=== PATIENT | female | born 1955 | race Hispanic/Latino ===

== ENCOUNTER 2017-03-21 15:15 | Inpatient (IN) | payer OTHER ==
[2017-03-21 15:28] VITALS: BMI 16.1
--- NOTE | 2017-03-21 15:44 | ED PDOC ---
Arrival/HPI - General Chief Complaint: Abdominal Pain Time Seen by Provider: 03/21/17 15:18 Historian: Patient - History of Present Illness Narrative History of Present Illness (Text): 03/21/17 15:40 61 y /o female, last tetanus doesn't remember, pmh including DVT?/ hyperlipidemia (non-compliance with medication)/leukemia? and possible lung cancer as per patient which never confirmed with biopsy, send in by PMD Dr. Potter for evaluation of weight loss and lt. lower rib cage pain. Pt. stated that she was a chronic smoker for years, noted to have lung lesion about 2 years ago which she had pet scan and show metasis as per patient but refused biopsy for confirmation, never had medical or specialists follow up as she is taking care of her mother. Pt. has multiple skin lesions lump on the chest region which pmd and delivery person is follow up. pt. is here today because she has lt. sided rib pain with painful upon inspiration which send in by her own pmd for further evaluation. Pt. stated that she does have weight loss recently but doesn't remember exactly how many pounds/kg but does noted appearance for skinnier appearance and BMI 16.1 noted in the ER. Pt. stated that she isn't on any medications. Pt. has no extremity pain, no night sweat, no rash, no numbness or tingling, no other medical or psychological complaints. Past Medical History - Provider Review Nursing Documentation Reviewed: Yes - Infectious Disease Hx of Infectious Diseases: None - Reproductive Menopause: Yes - Pulmonary Hx Lung Cancer: Yes (2 years ago no treatment) - Psychiatric Hx Substance Use: No Family/Social History - Physician Review Nursing Documentation Reviewed: Yes Family/Social History: Unknown Family HX Smoking Status: Current Some Days Smoker Hx Alcohol Use: Yes Frequency of alcohol use: Socially Hx Substance Use: No Allergies/Home Meds Allergies/Adverse Reactions: Allergies No Known Allergies Allergy (Verified 03/21/17 15:28) Home Medications: Home Meds Medication Instructions Recorded Confirmed Cephalexin [cephalexin] 500 mg PO Q12 03/21/17 03/21/17 Cyclobenzaprine [Cyclobenzaprine 10 mg PO DAILY 03/21/17 03/21/17 HCl] Mupirocin 2% Ointment [Bactroban 22 gm TID 03/21/17 03/21/17 Ointment] Review of Systems - Review of Systems Constitutional: Weight Change. absent: Fatigue, Fevers Eyes: absent: Vision Changes ENT: absent: Hearing Changes Respiratory: absent: SOB Cardiovascular: Chest Pain. absent: WALL, Orthopnea, Syncope Gastrointestinal: absent: Abdominal Pain, Diarrhea, Nausea, Vomiting Genitourinary Female: absent: Dysuria, Frequency Musculoskeletal: absent: Arthralgias, Back Pain Skin: Rash, Skin Lesions. absent: Pruritis, Laceration, Abscess, Ulcer, Cellulitis Neurological: absent: Headache, Dizziness Psychiatric: absent: Anxiety, Depression Physical Exam Vital Signs Reviewed: Yes Vital Signs Temp Pulse Resp BP Pulse Ox 03/21/17 18:08 98 F 110 H 18 101/54 L 100 03/21/17 15:28 97.6 F 112 H 16 133/63 95 Temperature: Afebrile Blood Pressure: Normal Pulse: Tachycardic Respiratory Rate: Normal Appearance: Positive for: Well-Appearing, Non-Toxic, Ill-Appearing, Unkept, Uncomfortable Pain Distress: Mild Mental Status: Positive for: Alert and Oriented X 3 - Systems Exam Head: Present: Atraumatic, Normocephalic Pupils: Present: PERRL Extroacular Muscles: Present: EOMI Conjunctiva: Present: Normal Mouth: Present: Moist Mucous Membranes Neck: Present: Normal Range of Motion, Trachea Midline. No: Lymphadenopathy Respiratory/Chest: Present: Clear to Auscultation, Good Air Exchange, Decreased Breath Sounds, Other (multiple skin lumps noted on the lt. posterior scapular and rt. posterior rib cage region with approx. 4cm diameter with no fluctuant abscess with lt. posterior shoulder scapular with superficial abrasion and active bleeding when removing dressing. ). No: Respiratory Distress, Accessory Muscle Use, Retracting, Rhonchi Cardiovascular: Present: Regular Rate and Rhythm, Normal S1, S2. No: Murmurs Abdomen: Present: Normal Bowel Sounds. No: Tenderness, Distention, Peritoneal Signs Back: Present: Normal Inspection Upper Extremity: Present: Normal Inspection. No: Cyanosis, Edema Lower Extremity: Present: Normal Inspection. No: Edema Neurological: Present: GCS=15, Speech Normal, Motor Func Grossly Intact, Gait Normal, Memory Normal Skin: Present: Warm, Dry, Normal Color. No: Rashes Psychiatric: Present: Alert, Oriented x 3, Normal Insight, Normal Concentration Medical Decision Making ED Course and Treatment: 03/21/17 15:47 Differential: PE vs. Metasis from Pulmonary source vs. CHF vs. ACS vs. Dehydration -labs/cardiac enzyme/d-dimier -type and screen/coag -CXR -EKG -Tdap -IVF/pt. refused pain med -Observe and reassess 03/21/17 16:38 -Wbc 56.3, blood culture and vbg shock panel order -Platete 558, aspirin 325mg po ordered. -EKG: ST @ 109 BPM, T wave inversions noted on the lead II/aVF/V2/V3 with no previous comparison of ekg, no ST elevation or depression. 03/21/17 16:42 -CTA/CT abdomen and pelvis ordered, CMP reviewed. 03/21/17 17:11 -Dr. Potter came to the ER and reviewed the case briefly, examined his patient on the bedside as well. -D-Dimer 1578, pending CTA and abdomen/pelvis, added bilateral lower extremities venuous doppler. -Pt. request pain med now, request mild dose of morphine, 2mg IV ordered. 03/21/17 17:49 -Pt. also noted to have bandemia of 14 as well, pending VBG shock panel, no suspecting of the infection noted at this time. Pt. fits the SIRS criteria but not sepsis at this point. -Lactic acid 1.5 within normal limit 03/21/17 19:04 -Labs are non-significant except WBC 56.3, Platete 558, DDimer 1578, Lipase 386 (very mild), Na 131/Cl 96 -CTA: Unremarkable CT pulmonary angiogram. No pulmonary embolus. Extensive tumor burden thorax and upper abdomen. This has been described greater detail above. -CT abdomen and pelvis: Widely disseminated metastatic disease abdomen retroperitoneum and pelvis. No osseous abnormalities to account for the clinical presentation. However, it should be noted at there is considerable tumor burden in the left upper quadrant including spleen, left adrenal gland, pancreas, adjacent soft tissue masses which may be related to rib pain. -Bilateral lower extremities: as per preliminary report, no acute DVT. -Pt. will need admission for further evaluation by pulmonology/oncologist. -UA show +WBC and trace leukocyte, no urinary symptoms, urine culture ordered. PMD ordered rocephine for the broad spectrum coverage for the skin lump. -Paging Dr. Potter 03/21/17 20:01 -Case discussed with Dr. Gonzalez, covering for Dr. Potter, discussed about the case and awared of the CT result. -Case discussed with Dr. Spann, discussed about the case/labs/radiology result, agreed the patient should go to the tele as lt. rib is part of the chest cavity and remains tachycardia. - Lab Interpretations Lab Results: 03/21/17 16:00 03/21/17 16:00 Lab Results 03/21/17 19:05: Urine Color Yellow, Urine Appearance Clear, Urine pH 6.5, Ur Specific [place] <= 1.005, Urine Protein Negative, Urine Glucose (UA) Negative, Urine Ketones Negative, Urine Blood Trace-intact H, Urine Nitrate Negative, Urine Bilirubin Negative, Urine Urobilinogen 0.2, Ur Leukocyte Esterase Trace H , Urine RBC 0 - 2, Urine WBC 5 - 10, Ur Epithelial Cells 4 - 5, Urine Bacteria Few 03/21/17 17:30: pO2 45, VBG pH 7.40, VBG pCO2 46.0, VBG HCO3 28.5 H, VBG Total CO2 29.9 H, VBG O2 Sat (Calc) 82.6 H, VBG Base Excess 3.0 H, VBG Potassium 4.8, Glucose 98, Lactate 1.5, FiO2 21.0, Sodium 131.0 L, Chloride 100.0, Venous Blood Potassium 4.8 03/21/17 16:50: Blood Type A POSITIVE, Antibody Screen Negative, BBK History Checked No verified bt 03/21/17 16:00: WBC 56.3 H*, RBC 3.57, Hgb 10.9 L, Hct 32.8 L, MCV 91.9, MCH 30.5, MCHC 33.2, RDW 14.5, Plt Count 558 H, MPV 8.4, Neutrophils % (Manual) 68, Band Neutrophils % 14 H*, Lymphocytes % (Manual) 4 L, Atypical Lymphs % 0, Monocytes % (Manual) 2, Eosinophils % (Manual) 12 H, Platelet Evaluation High 03/21/17 16:00: Sodium 131 L, Potassium 4.8, Chloride 96 L, Carbon Dioxide 27, Anion Gap 13, BUN 4 L, Creatinine 0.4 L, Est GFR ( Amer) > 60, Est GFR ( Non-Af Amer) > 60, Random Glucose 89, Calcium 9.5, Magnesium 1.6 L, Total Bilirubin 0.6, AST 45 H, ALT 33, Alkaline Phosphatase 97, Lactate Dehydrogenase 788 H, Total Creatine Kinase < 20 L, Troponin I < 0.01, NT-Pro-B Natriuret Pep 177, Total Protein 6.2, Albumin 3.0, Globulin 3.2, Albumin/Globulin Ratio 0.9 L , Lipase 386 H 03/21/17 16:00: PT 15.7 H, INR 1.43 H, APTT 30.1, D-Dimer, Quantitative 1578 H I have reviewed the lab results: Yes Interpretation: Abnormal lab values (WBC 56.3, Platete 558, DDimer 1578, Lipase 386 (very mild), Na 131/Cl 96) - RAD Interpretation Radiology Orders: 03/21/17 15:39 CHEST PORTABLE [RAD] Stat 03/21/17 16:41 ABDOMEN & PELVIS [ABD & PELVIS IV CONTRAST ONLY] [CT] Stat ANGIO CHEST PE PROTOCOL [CT] Stat 03/21/17 17:12 DUPLEX LOWER EXTRM VEIN BILAT [US] Stat Chest xray: HISTORY: lt. sided rib pain COMPARISON: No prior. FINDINGS: LUNGS: Homogeneous opacity inferior right lung base without silhouetting of the right hemidiaphragm or right heart border noted. Lobulated opacity bordering the left calcified aortic knob . PLEURA: No significant pleural effusion identified, no pneumothorax apparent. CARDIOVASCULAR: Normal heart this OSSEOUS STRUCTURES: No significant abnormalities. VISUALIZED UPPER ABDOMEN: Normal. OTHER FINDINGS: None. IMPRESSION: Markedly limited exam without lateral or prior studies for comparison. The left para aortic obvious soft tissue as a differential of primary lung mass , lymphadenopathy including left aortic dissection are some consideration. CTA: PROCEDURE: CT Chest with contrast (Pulmonary Angiogram) HISTORY: Lt. lower rib pain, lung cancer (noncompliance) COMPARISON: None available. TECHNIQUE: Axial computed tomography images were obtained of the chest in the pulmonary arterial phase of enhancement. Coronal and sagittal reformatted images were created and reviewed. Intravenous contrast dose: 140 cc Omnipaque 300 Mean Hounsfield unit values in the main pulmonary artery: 390.73 Radiation dose: Total exam DLP = 174.00 mGy-cm. This CT exam was performed using one or more of the following dose reduction techniques: Automated exposure control, adjustment of the mA and/or kV according to patient size, and/or use of iterative reconstruction technique. FINDINGS: PULMONARY ARTERIES: Unremarkable. No pulmonary embolism. AORTA: No acute findings. No thoracic aortic aneurysm. LUNGS: Necrotic mass right lower lobe 9.4 x 9.5 x 10 cm. The mass appears to invade the chest wall. Although there is contiguity with adjacent ribs there is no obvious rib destruction. PLEURAL SPACES: Unremarkable. No effusion or pneuomothorax. HEART: Unremarkable. No cardiomegaly. Small pericardial effusion. Maximum thickness of the pericardium 12 mm. Pericardial tumor identified interposed between the pericardium, the diaphragm and the liver measuring 2.0 cm. . LYMPH NODES: Bulky tumor mass interposed between the sternum and aortic arch measures 5.4 x 6.9 cm. Incompletely visualized tumor interposed between the right atrium and the diaphragm measuring 2.8 cm. BONES, CHEST WALL: Unremarkable. No fracture or destructive lesion OTHER FINDINGS: Metastatic disease left upper quadrant including adrenal metastasis 4.9 cm. Small metastatic focus interposed between the left kidney and abdominal wall 2 cm. Necrotic mass in the spleen 4.2 x 5 cm. IMPRESSION: Unremarkable CT pulmonary angiogram. No pulmonary embolus. Extensive tumor burden thorax and upper abdomen. This has been described greater detail above. CT abdomen and pelvis: PROCEDURE: CT Abdomen and Pelvis with contrast HISTORY: lt. lower rib pain, lung cancer COMPARISON: None. TECHNIQUE: Contrast dose: 140 cc Omnipaque 300 Radiation dose: Total exam DLP = 220.77 mGy-cm. This CT exam was performed using one or more of the following dose reduction techniques: Automated exposure control, adjustment of the mA and/or kV according to patient size, and/or use of iterative reconstruction technique. FINDINGS: LOWER THORAX: Incompletely visualized tumor burden in the lower lung staley described in greater detail in the CT pulmonary angiogram. LIVER: Suspicious mass in the right hepatic lobe adjacent to the inferior vena cava 1.7 cm. GALLBLADDER AND BILE DUCTS: Unremarkable. PANCREAS: Mass either emanating from or invading the pancreas, this measures 2.2 x 2.5 cm and is interposed between the aorta and the splenic artery. More distal dilatation of the pancreatic duct noted. Tumor contiguous with the pancreatic tail extending to the lateral abdominal wall is inseparable from normal pancreas measuring 4.1 x 4.3 cm. SPLEEN: Cystic mass presumed to be splenic metastatic disease 4 x 4.2 cm. ADRENALS: Necrotic left adrenal mass 4.3 x 4.8 cm. Necrotic right adrenal mass 1.9 x 3.7 cm. KIDNEYS AND URETERS: Unremarkable. No hydronephrosis. No solid mass. VASCULATURE: Densely calcified non aneurysmal abdominal BOWEL: No obstructing lesions identified. Constipation without fecal impaction or obstruction. APPENDIX: No abnormalities to suggest acute appendicitis. No right lower quadrant inflammatory processes identified. PERITONEUM: Free fluid in the pelvis identified. LYMPH NODES: Unremarkable. No enlarged lymph nodes. BLADDER: Unremarkable. REPRODUCTIVE: Unremarkable. BONES: No acute fracture. OTHER FINDINGS: Multiple masses within the abdomen and mesenteries the preponderance of which are necrotic. For example mass in the left hemipelvis 2.5 cm. Mass interposed between the left iliac bone and the skin 1.5 cm. Mass interposed between L5 transverse process and the iliac bone 3.6 x 4.4 cm. Additional subcutaneous masses on the right less than 1 cm. Additional tumor nodules study in the anterior surface and lateral aspects of the abdominal wall noted. IMPRESSION: Widely disseminated metastatic disease abdomen retroperitoneum and pelvis. No osseous abnormalities to account for the clinical presentation. However, it should be noted at there is considerable tumor burden in the left upper quadrant including spleen, left adrenal gland, pancreas, adjacent soft tissue masses which may be related to rib pain. Bilateral lower extremities: as per preliminary report, no acute DVT. Auto Research Engineer: Radiologist - EKG Interpretation EKG Interpretation (Text): 03/21/17 16:39 -EKG: ST @ 109 BPM, T wave inversions noted on the lead II/aVF/V2/V3 with no previous comparison of ekg, no ST elevation or depression. Interpreted by ED Physician: Yes Type: 12 lead EKG - Medication Orders Current Medication Orders: Ceftriaxone Sodium 1 gm/ (Sodium Chloride) 100 mls @ 100 mls/hr IVPB DAILY SANDIP PRN Reason: Protocol Last Admin: 03/21/17 18:28 Dose: 100 mls/hr eMAR Start Stop Document 03/21/17 18:28 LA (Rec: 03/21/17 18:29 [place] [facility] [id number]) Intravenous Solution Start Date 03/21/17 Start Time 18:29 Sodium Chloride (Sodium Chloride 0.9%) 500 mls @ 40 mls/hr IV .[id number] SANDIP Morphine Sulfate (Morphine) 4 mg IVP Q4H PRN PRN Reason: Pain, moderate (4-7) Discontinued Medications Aspirin (Aspirin) 325 mg PO STAT STA Stop: 03/21/17 16:38 Last Admin: 03/21/17 16:47 Dose: 325 mg Sodium Chloride (Sodium Chloride 0.9%) 1,000 mls @ 100 mls/hr IV .Q10H SANDIP Last Admin: 03/21/17 17:05 Dose: 100 mls/hr eMAR Start Stop Document 03/21/17 17:05 LA (Rec: 03/21/17 17:06 [id number]) Intravenous Solution Start Date 03/21/17 Start Time 17:06 Morphine Sulfate (Morphine) 2 mg IVP STAT STA Stop: 03/21/17 17:11 Last Admin: 03/21/17 17:17 Dose: 2 mg MAR Pain Assessment Document 03/21/17 17:17 LA (Rec: 03/21/17 17:26 [id number] Pain Reassessment Is this a pain reassessment? Yes Sleep Is patient sleeping during reassessment? No Presence of Pain Presence of Pain Yes Pain Scale Used Pain Scale Used Numeric Location Left, Right or Bilateral Left Pain Location Body Site Abdomen IVP Administration Document 03/21/17 17:17 LA (Rec: 03/21/17 17:26 [id number] Charges for Administration # of IVP Administrations 1 Re-Assess: MAR Pain Assessment Document 03/21/17 18:17 LA (Rec: 03/21/17 18:37 [id number]) Pain Reassessment Is this a pain reassessment? Yes Sleep Is patient sleeping during reassessment? No Presence of Pain Presence of Pain Yes Pain Scale Used Pain Scale Used Numeric Location Left, Right or Bilateral Left Upper or Lower Lower Pain Location Body Site Abdomen Description Intensity of Pain at present 2 Acceptable Level of Pain 2 Tetanus/Reduced Diphtheria/Acell Pertussis (Boostrix Vaccine Inj) 0.5 ml IM .ONCE ONE Stop: 03/21/17 15:49 Last Admin: 03/21/17 16:53 Dose: 0.5 ml MAR Immunization Data Document 03/21/17 16:53 [place] (Rec: 03/21/17 16:53 [facility] [id number]) Immunization Data Vaccine Information Sheet Given Yes Immunization Registry Document 03/21/17 16:53 [place] (Rec: 03/21/17 16:53 [facility] [id number]) Immunization Registry Consent Date 03/21/17 - PA / ACID TENDER / Resident Statement /DO has reviewed & agrees with the documentation as recorded. Disposition/Present on Arrival - Present on Arrival Any Indicators Present on Arrival: No History of DVT/PE: Yes History of Uncontrolled Diabetes: Yes Urinary Catheter: Yes History of Decub. Ulcer: Yes History Surgical Site Infection Following: None - Disposition Have Diagnosis and Disposition been Completed?: Yes Diagnosis: Metastatic cancer, Leukocytosis, Hypercoagulable state, Tachycardia, Chest pain Disposition: HOSPITALIZED Disposition Time: 20:00 Patient Plan: Admission, Telemetry Patient Problems: Current Active Problems Problem Status Onset Metastatic cancer Acute Leukocytosis Acute Hypercoagulable state Acute Tachycardia Acute Condition: GUARDED Discharge Instructions (ExitCare): Chest Pain (ED) [facility], [Primary Care Provider] - Follow up with primary Forms: [facility] ([place])
[2017-03-21] MEDS ORDERED: Sodium Chloride 0.9% 1,000 ML IV SCH (15:45)
[2017-03-21] MEDS ORDERED: TDAP Vaccine 0.5 mL Syr IM ONE (15:48)
--- NOTE | 2017-03-21 16:12 | RAD ---
HISTORY: lt. sided rib pain COMPARISON: No prior. FINDINGS: LUNGS: Homogeneous opacity inferior right lung base without silhouetting of the right hemidiaphragm or right heart border noted. Lobulated opacity bordering the left calcified aortic knob . PLEURA: No significant pleural effusion identified, no pneumothorax apparent. CARDIOVASCULAR: Normal heart this OSSEOUS STRUCTURES: No significant abnormalities. VISUALIZED UPPER ABDOMEN: Normal. OTHER FINDINGS: None. IMPRESSION: Markedly limited exam without lateral or prior studies for comparison. The left para aortic obvious soft tissue as a differential of primary lung mass, lymphadenopathy including left aortic dissection are some considerations. Per conversation with KENDALL Singh in the ER 12/20/2016 at 4:05 p.m., the KENDALL has informed me that the patient has a known history of lung cancer apparently worked up on the outside. The differential considerations for the current findings as noted above were directly discussed with the PA. Similarly the opacity at the right lung base is inferior right erma thorax is also indeterminate regarding its origin and stability. Apparently there is clinical concern for possible PE per the physician's phlebotomy lab assistant, and this is now being ordered
[2017-03-21 16:24] LABS: HEMOGLOBIN 10.9 g/dL (12.0-16.0); MEAN CELL VOLUME 91.9 fl (80.0-105.0); MEAN CORPUSCULAR HEMOGLOBIN 30.5 pg (25.0-35.0); MEAN CORPUSCULAR HGB CONC 33.2 g/dl (31.0-37.0); MEAN PLATELET VOLUME 8.4 fl (7.0-11.0); PLATELET COUNT 558 10^3/uL (120.0-450.0); RBC 3.57 10^6/uL (3.5-6.1); RED CELL DISTRIBUTION WIDTH 14.5 % (11.5-14.5)
[2017-03-21 16:32] LABS: WHITE BLOOD COUNT 56.3 10^3/ul (4.5-11.0)
[2017-03-21 16:33] LABS: ALB/GLOB RATIO 0.9 (1.1-1.8); ALT/SGPT 33 U/L (7-56); AST/SGOT 45 U/L (14-36); BLOOD UREA NITROGEN 4 mg/dL (7-21); CALCIUM 9.5 mg/dL (8.4-10.5); GFR AFRICAN-AMERICAN > 60; GFR NON-AFRICAN AMERICAN > 60; LIPASE 386 U/L (23-300); MAGNESIUM 1.6 mg/dL (1.7-2.2)
[2017-03-21 16:40] LABS: INR 1.43 (0.93-1.08); PARTIAL THROMBOPLASTIN TIME 30.1 Seconds (25.1-36.5); PROTHROMBIN TIME 15.7 SECONDS (9.4-12.5)
[2017-03-21 16:41] LABS: B-TYPE NATRIURETIC PEPTIDE 177 pg/mL (0-450); TROPONIN I < 0.01 ng/mL
[2017-03-21] MEDS ORDERED: Morphine 2 mg/ml ISec IVP STA (17:10)
[2017-03-21 17:20] LABS: NEUTROPHIL 68 % (50.0-70.0)
[2017-03-21 17:24] LABS: ATYPICAL LYMPHOCYTE 0 % (0.0-0.0); BAND 14 % (0-2); EOSINOPHIL 12 % (0.0-3.0); LYMPHOCYTE 4 % (22.0-35.0); MONOCYTE 2 % (1.0-6.0); PLATELET ESTIMATE HIGH (NORMAL)
[2017-03-21] MEDS ORDERED: Sodium Chloride 0.45% 1,000 ML IV SCH (17:30)
[2017-03-21 17:43] LABS: VENOUS BLOOD GAS PO2 45 mm/Hg (30-55)
--- NOTE | 2017-03-21 18:36 | CT ---
PROCEDURE: CT Chest with contrast (Pulmonary Angiogram) HISTORY: Lt. lower rib pain, lung cancer (noncompliance) COMPARISON: None available. TECHNIQUE: Axial computed tomography images were obtained of the chest in the pulmonary arterial phase of enhancement. Coronal and sagittal reformatted images were created and reviewed. Intravenous contrast dose: 140 cc Omnipaque 300 Mean Hounsfield unit values in the main pulmonary artery: 390.73 Radiation dose: Total exam DLP = 174.00 mGy-cm. This CT exam was performed using one or more of the following dose reduction techniques: Automated exposure control, adjustment of the mA and/or kV according to patient size, and/or use of iterative reconstruction technique. FINDINGS: PULMONARY ARTERIES: Unremarkable. No pulmonary embolism. AORTA: No acute findings. No thoracic aortic aneurysm. LUNGS: Necrotic mass right lower lobe 9.4 x 9.5 x 10 cm. The mass appears to invade the chest wall. Although there is contiguity with adjacent ribs there is no obvious rib destruction. PLEURAL SPACES: Unremarkable. No effusion or pneuomothorax. HEART: Unremarkable. No cardiomegaly. Small pericardial effusion. Maximum thickness of the pericardium 12 mm. Pericardial tumor identified interposed between the pericardium, the diaphragm and the liver measuring 2.0 cm. . LYMPH NODES: Bulky tumor mass interposed between the sternum and aortic arch measures 5.4 x 6.9 cm. Incompletely visualized tumor interposed between the right atrium and the diaphragm measuring 2.8 cm. BONES, CHEST WALL: Unremarkable. No fracture or destructive lesion OTHER FINDINGS: Metastatic disease left upper quadrant including adrenal metastasis 4.9 cm. Small metastatic focus interposed between the left kidney and abdominal wall 2 cm. Necrotic mass in the spleen 4.2 x 5 cm. IMPRESSION: Unremarkable CT pulmonary angiogram. No pulmonary embolus. Extensive tumor burden thorax and upper abdomen. This has been described greater detail above.
--- NOTE | 2017-03-21 18:48 | CT ---
PROCEDURE: CT Abdomen and Pelvis with contrast HISTORY: lt. lower rib pain, lung cancer COMPARISON: None. TECHNIQUE: Contrast dose: 140 cc Omnipaque 300 Radiation dose: Total exam DLP = 220.77 mGy-cm. This CT exam was performed using one or more of the following dose reduction techniques: Automated exposure control, adjustment of the mA and/or kV according to patient size, and/or use of iterative reconstruction technique. FINDINGS: LOWER THORAX: Incompletely visualized tumor burden in the lower lung staley described in greater detail in the CT pulmonary angiogram. LIVER: Suspicious mass in the right hepatic lobe adjacent to the inferior vena cava 1.7 cm. GALLBLADDER AND BILE DUCTS: Unremarkable. PANCREAS: Mass either emanating from or invading the pancreas, this measures 2.2 x 2.5 cm and is interposed between the aorta and the splenic artery. More distal dilatation of the pancreatic duct noted. Tumor contiguous with the pancreatic tail extending to the lateral abdominal wall is inseparable from normal pancreas measuring 4.1 x 4.3 cm. SPLEEN: Cystic mass presumed to be splenic metastatic disease 4 x 4.2 cm. ADRENALS: Necrotic left adrenal mass 4.3 x 4.8 cm. Necrotic right adrenal mass 1.9 x 3.7 cm. KIDNEYS AND URETERS: Unremarkable. No hydronephrosis. No solid mass. VASCULATURE: Densely calcified non aneurysmal abdominal BOWEL: No obstructing lesions identified. Constipation without fecal impaction or obstruction. APPENDIX: No abnormalities to suggest acute appendicitis. No right lower quadrant inflammatory processes identified. PERITONEUM: Free fluid in the pelvis identified. LYMPH NODES: Unremarkable. No enlarged lymph nodes. BLADDER: Unremarkable. REPRODUCTIVE: Unremarkable. BONES: No acute fracture. OTHER FINDINGS: Multiple masses within the abdomen and mesenteries the preponderance of which are necrotic. For example mass in the left hemipelvis 2.5 cm. Mass interposed between the left iliac bone and the skin 1.5 cm. Mass interposed between L5 transverse process and the iliac bone 3.6 x 4.4 cm. Additional subcutaneous masses on the right less than 1 cm. Additional tumor nodules study in the anterior surface and lateral aspects of the abdominal wall noted. IMPRESSION: Widely disseminated metastatic disease abdomen retroperitoneum and pelvis. No osseous abnormalities to account for the clinical presentation. However, it should be noted at there is considerable tumor burden in the left upper quadrant including spleen, left adrenal gland, pancreas, adjacent soft tissue masses which may be related to rib pain.
[2017-03-21 19:20] LABS: PH,URINE 6.5 (4.7-8.0); URINE BILIRUBIN NEGATIVE (NEGATIVE); URINE BLOOD TRACE-INTACT (NEGATIVE); URINE GLUCOSE (UA) NEGATIVE (NEGATIVE); URINE LEUKOCYTE ESTERASE TRACE Leu/uL (NEGATIVE); URINE NITRATE NEGATIVE (NEGATIVE); URINE PROTEIN NEGATIVE mg/dL (<30 mg/dL); URINE UROBILINOGEN 0.2 E.U./dL (<1 E.U./dL)
[2017-03-21 19:37] LABS: URINE APPEARANCE CLEAR (CLEAR); URINE COLOR YELLOW (YELLOW)
[2017-03-21 19:53] LABS: URINE RBC 0 - 2 /hpf (0-2)
[2017-03-21 19:54] LABS: URINE BACTERIA FEW (NEG)
[2017-03-21] MEDS: Sodium Chloride 0.9% 500 ML IV SCH (20:29)
[2017-03-21] MEDS: Morphine 4 mg/ml ISec IVP PRN (21:56)
--- NOTE | 2017-03-21 23:16 | CP.PCM.CON ---
History of Present Illness - History of Present Illness History of Present Illness: Surgery Consult note. Dr. Julien 61yo F with PMHx of Lung CA (noncompliant), ?Leukemia (noncompliant), HLD here for evaluation of left chest wall pain. Patient states that she was first diagnosed with lung CA 2 years ago on the basis of a CT scan. She has since refused any biopsies or workups for the mass. She states that she noticed a lump on her left shoulder a few months ago which has gradually gotten worse and has been draining bloody discharge for the past few weeks. She has also noted three similar lumps on her right back which have not been draining. She currently denies any pain at these masses. She does report left chest wall pain upon deep inspiration. CTA Chest done in ED which is negative for PE. Multiple masses noted on CT Abd/Pelvis: spleen, pancreas, liver, lung and retroperitoneal lympadenopathy. She does report weight loss but is unable to quantify. PMD: Potter PMHx: Presumed metastatic Lung CA (noncompliance to work up or treatment), ? Leukemia PSHx: Denies Social Hx: Current 1ppd smoker, previous 2ppd smoker for 40+years. Previous social ETOH use. Denies any drug use NKDA Review of Systems - Review of Systems All systems: reviewed and no additional remarkable complaints except - Constitutional Constitutional: Anorexia, Weight Loss. absent: Chills, Fever - Cardiovascular Cardiovascular: Chest Pain. absent: Dyspnea Additional comments: left chest wall pain. - Respiratory Respiratory: Pain on Inspiration - Gastrointestinal Gastrointestinal: absent: Abdominal Pain, Diarrhea, Nausea, Vomiting - Integumentary Integumentary: Bleeding Lesions, Changing Lesions Past Patient History - Infectious Disease Hx of Infectious Diseases: None - Past Social History Smoking Status: Current Some Days Smoker - PULMONARY Hx Lung Cancer: Yes (2 years ago no treatment) - PSYCHIATRIC Hx Substance Use: No Meds Allergies/Adverse Reactions: Allergies Allergy/AdvReac Type Severity Reaction Status Date / Time No Known Allergies Allergy Verified 03/21/17 15:28 - Medications Medications: Current Medications Ceftriaxone Sodium 1 gm/ (Sodium Chloride) 100 mls @ 100 mls/hr IVPB DAILY SANDIP PRN Reason: Protocol Last Admin: 03/21/17 18:28 Dose: 100 mls/hr Sodium Chloride (Sodium Chloride 0.9%) 500 mls @ 40 mls/hr IV .[id number] SANDIP Last Admin: 03/21/17 20:29 Dose: 40 mls/hr Morphine Sulfate (Morphine) 4 mg IVP Q4H PRN PRN Reason: Pain, moderate (4-7) Last Admin: 03/21/17 21:56 Dose: 4 mg Physical Exam - Constitutional Appears: Non-toxic, No Acute Distress, Cachectic, Chronically Ill - Head Exam Head Exam: ATRAUMATIC, NORMAL INSPECTION, NORMOCEPHALIC - Eye Exam Eye Exam: EOMI - ENT Exam ENT Exam: Mucous Membranes Moist - Respiratory Exam Respiratory Exam: Chest Wall Tenderness, NORMAL BREATHING PATTERN. absent: Accessory Muscle Use, Respiratory Distress - Cardiovascular Exam Cardiovascular Exam: absent: JVD - GI/Abdominal Exam GI & Abdominal Exam: Soft. absent: Distended, Firm, Guarding, Rigid, Tenderness - Extremities Exam Extremities exam: Negative for: calf tenderness, pedal edema Additional comments: Left shoulder mass: erythema, induration, hard painless mass to the left posterior shoulder with some bleeding and discharge noted. Right back masses x3: hard, mobile masses, painless. - Neurological Exam Neurological exam: Alert, Oriented x3 - Psychiatric Exam Psychiatric exam: Normal Affect, Normal Mood Results - Vital Signs Recent Vital Signs: Last Vital Signs Temp 98.0 F 03/21/17 21:48 Pulse 109 H 03/21/17 21:48 Resp 18 03/21/17 21:48 BP 105/76 03/21/17 21:48 Pulse Ox 98 03/21/17 21:48 - Labs Result Diagrams: 03/22/17 06:00 03/22/17 06:00 Assessment & Plan - Assessment and Plan (Free Text) Assessment: 61yo F with metastatic disease. Surgery consulted for possible left shoulder mass biopsy - Continue current management as per Primary - Recommend Heme/Onc evaluation - To OR for Bx on 03/22 Further recs as per Dr. Wily Baez PGY1 surgery pager: [phone]
--- NOTE | 2017-03-22 02:51 | HP ---
HISTORY OF PRESENT ILLNESS: I saw her in the office about a week ago. She is a very noncompliant patient. I sent her for a CAT scan, outpatient consults and lab tests, she did not do anything. She ended up in the emergency room. She is not doing well. She does have a history of lung cancer and she is having pains, shortness of breath and lesions on her body, which could be metastasis. She had chosen not to do anything about this and now she is in the emergency room. She is a 61-year-old female with past medical history of lung cancer, refusing to have treatment, deep vein thrombosis, high cholesterol, noncompliance, leukemia possibly, possible lung cancer which we know she has, and now she has a growth on her left shoulder versus abscess and it is bleeding. She lost a lot of weight. She is not taking her medications, not doing the outpatient tests despite two years of lung cancer without treatment. PAST MEDICAL HISTORY: She would not take any medications. There is a weight change; a big lose in weight. FAMILY HISTORY: Unknown family history. SOCIAL HISTORY: She is still smoking cigarettes. She still drinks alcohol. No drugs. ALLERGIES: NO KNOWN DRUG ALLERGIES. REVIEW OF SYSTEMS: No acute vision or hearing changes. No neck pain. There is shortness of breath. Occasional cough; there is chest pain. There is dyspnea on exertion. No nausea, vomiting, constipation or diarrhea. There is left-sided abdominal pain. No problems urinating. There is back pain and arm pain. There are skin lesions and rashes. No headache, no dizziness, no anxiety, no depression. PHYSICAL EXAMINATION: VITAL SIGNS: She has 97.6 temperature, 112 pulse, 16 respiratory rate, 133/63 blood pressure, 95% O2 saturation room air. HEENT: Head is atraumatic and normocephalic. She is well appearing, but toxic, uncomfortable, in bed straight. She understands her prognosis. Throat is dry. NECK: Supple. HEART: Regular rate, normal S1 and S2. LUNGS: Decreased breath sounds bilaterally. BACK: She has got lumps on her back, on her body, not sure if they are abscesses or metastasis. ABDOMEN: She has left-sided abdominal pain, questionable hard abdomen in some areas. Positive bowel sounds. No guarding or rebound. EXTREMITIES: No edema to the extremities. NEUROLOGIC: GCS is 15. Cranial nerves II through XII are grossly intact. She is alert and oriented x3. SKIN: There are multiple abscesses-looking, redness and bleeding. She is in a bit of trouble. LABORATORY DATA: She has 56,000 white count, 10.9 hemoglobin, 32.8 hematocrit, with 558 platelets, 1.43 INR with a 1,578 D-dimer, 131 sodium, potassium is 4.8, BUN 4, creatinine 0.4, GFR is greater than 60, sugar is 89, calcium 9.5, magnesium is 1.6, total bilirubin is 0.6, AST is 45, ALT is 33, alk phos is 97, lactate dehydrogenase is 788, troponin I of less than 0.01, BMP is 177, troponin 6.2, lipase is very high at 386. ASSESSMENT AND PLAN: She has multiple issues, possible lung cancer, possible leukemia, elevated white count, multiple skin lesions - could be abscesses versus metastasis. I have called in Oncology for their opinion, Pulmonary for the lung opinion and Surgery to do a biopsy and care of some of these abscesses. She will be on Rocephin, morphine, intravenous fluids. I am going to see what we can do as she is very weak and in a lot of pain. There is a CAT scan of the abdomen, pelvis and, CT angio pending plus venous Dopplers of lower extremities. I am going to put her on oxygen at 2 liters. We will check her labs tomorrow. Rocky Potter DO
[2017-03-22] MEDS: Sodium Chloride 0.9% 500 ML IV SCH ×2 (06:10→17:34)
[2017-03-22 07:08] LABS: ALB/GLOB RATIO 0.9 (1.1-1.8); ALBUMIN 2.4 g/dL (3.0-4.8); ALT/SGPT 26 U/L (7-56); AST/SGOT 27 U/L (14-36); BLOOD UREA NITROGEN 4 mg/dL (7-21); CALCIUM 9.1 mg/dL (8.4-10.5); GFR AFRICAN-AMERICAN > 60; GFR NON-AFRICAN AMERICAN > 60
[2017-03-22 07:15] LABS: HEMOGLOBIN 9.6 g/dL (12.0-16.0); MEAN CELL VOLUME 92.8 fl (80.0-105.0); MEAN CORPUSCULAR HEMOGLOBIN 29.9 pg (25.0-35.0); MEAN CORPUSCULAR HGB CONC 32.2 g/dl (31.0-37.0); MEAN PLATELET VOLUME 8.6 fl (7.0-11.0); RBC 3.21 10^6/uL (3.5-6.1)
[2017-03-22] MEDS ORDERED: Albuterol-Ipratrop 3 mg / 0.5 (3 ml) UD IH PRN (07:26)
[2017-03-22 07:52] LABS: WHITE BLOOD COUNT 59.8 10^3/ul (4.5-11.0)
--- NOTE | 2017-03-22 08:38 | CON ---
PULMONARY CONSULTATION DATE: 01/20/2017 REASON FOR CONSULTATION: Lung cancer. REFERRING PHYSICIAN: Rocky Potter DO HISTORY OF PRESENT ILLNESS: The patient is a 61-year-old female, with past medical history significant for presumed advanced lung cancer (the patient was initially diagnosed via PET scanning approximately 2 years ago. Unfortunately, she refused any/all workup and treatment), questionable leukemia, chronic obstructive pulmonary disease, positive extensive smoking history - still smokes, hyperlipidemia, who presents with main complaint of increasing left-sided rib pain for the past few weeks. The patient also noted that she had a lump on her shoulder (left) which has gotten worse. There are also smaller lumps on her right back area. The patient was thus admitted for additional evaluation. The patient denies shortness of breath at rest. She does have chronic occasional mild dyspnea on exertion. She also has an occasional cough with no sputum production. The patient denies chest pain, coughing up of blood, or chest pain - made worse with deep respirations. There is no history of temperatures, chills or infectious exposure. There is no history of night sweats. There is a definite history of weight loss with decreased appetite as of recent. No history of leg or calf pains. No history of syncope or diaphoresis. No history of recent travel or trauma. REVIEW OF SYSTEMS: No history of nausea, vomiting or diarrhea. No acute urinary symptoms. No new neurologic complaints. Rest of the review of system is negative. ALLERGIES: NO KNOWN ALLERGIES. SOCIAL HISTORY: Positive for extensive tobacco usage - still smokes, no alcohol. FAMILY HISTORY: No inheritable diseases. HOME MEDICATIONS: Include Bactroban ointment, cephalexin and cyclobenzaprine. PHYSICAL EXAMINATION GENERAL: The patient appears comfortable this morning. She is not short of breath at rest. She is mildly cachectic. VITAL SIGNS: Temperature is 98.0, pulse 88, respirations 16, blood pressure 105/76. Oxygen saturation on room air is 98%. HEENT: Normocephalic and atraumatic. No JVD. CARDIOVASCULAR: Positive S1, S2. No S3 gallop. LUNGS: Decreased breath sounds at the bases. Minimal rhonchi. No wheezing. EXTREMITIES: No clubbing, cyanosis or edema. Calves are nontender to palpation. GI: Abdomen is soft, nontender and nondistended. Bowel sounds are positive. SKIN: There are multiple skin lesions on the chest and back area. NEUROLOGIC: Limited at the present time. PERTINENT LABORATORY DATA: CAT scan of the chest was done yesterday as an angiogram protocol. There is no pulmonary embolism noted. There is a large necrotic right lower lobe lung mass that appears to invade the chest wall. There is also significant lymphadenopathy. CT scan of the abdomen and pelvis was also done. There are multiple masses noted within the abdomen and mesenteries - the preponderance of which are necrotic. Upon reviewing the report, there are masses in the right hepatic lobe, pancreas, spleen, and adrenals. CBC: White count 56.3, hemoglobin 10.9, hematocrit 32.8, platelets of 558 thousand. Complete metabolic profile: BUN 4, creatinine 0.4, total protein 5.2, albumin 2.4. Rest of the metabolic profiles within normal limits. IMPRESSION: 1. Advanced metastatic lung cancer. 2. Chronic obstructive pulmonary disease. 3. Wasting syndrome. 4. Mild anemia. 5. Questionable underlying leukemia. PLAN: The patient presents to [facility] with worsening left-sided rib pain for the past few weeks. She has also had a decrease in her appetite and has been losing weight. I did talk with the patient at length this morning. Apparently, the patient was first diagnosed with lung cancer approximately 2 years ago via PET scanning. Upon being told that she has probable lung cancer, she refused any and all additional workup and treatment. The patient stated that she was not interested in an invasive workup. She also states this morning that she is still not interested in any invasive workup. I did discuss the CT scan of the chest, abdomen and pelvis with her at length this morning. There is significant, widely metastatic cancer noted. Dr. Mack, (oncology) has been called on the case. On physical exam, there is minimal bronchospasm noted. There is no significant alveolar-arterial gradient. Oxygen saturation on room air is 98%. Unfortunately, the future status/prognosis for this patient remains very poor. I would consider getting a palliative care consult with Ana Chakraborty. In the meantime, I will start the patient on nebulizer treatments and inhaled steroids this morning. I will discuss the above with Dr. Potter later this morning. Thank you very much for this pulmonary consultation. Jay Jay Zheng MD MTDTio
--- NOTE | 2017-03-22 09:02 | US ---
HISTORY: Leg pain and swelling. Evaluate for DVT PHYSICIAN(S): Rudy Bell MD. TECHNIQUE: Duplex sonography and color-flow Doppler with graded compression were used to evaluate the deep venous systems of both lower extremities. FINDINGS: The visualized deep venous systems of both lower extremities are sonographically normal and compressible. Normal wave forms and augmentation are seen. There is no sonographic evidence for deep venous thrombosis in the visualized segments of both lower extremities. IMPRESSION: No sonographic evidence for deep venous thrombosis in the visualized segments of both lower extremities.
[2017-03-22 09:43] LABS: BASO # 0.1 K/mm3 (0.0-2.0); BASO % 0.2 % (0.0-3.0); EOS # 10.1 (0.0-0.7); GRAN # 41.4 (1.4-6.5); GRAN % 69.8 % (50.0-68.0); LYMPH # 2.4 (1.2-3.4); LYMPH % 4.1 % (22.0-35.0); MONO # 5.3 (0.1-0.6); MONO % 8.9 % (1.0-6.0)
--- NOTE | 2017-03-22 10:11 | CARD ---
APPROVED REPORT EKG Measurement Heart [id number] <Conclusion> Sinus Tachycardia NSSTW changes Low voltage limb leads
--- NOTE | 2017-03-22 11:22 | PN ---
DATE: SUBJECTIVE: I saw Jannie resting in bed. She is little bit calmer today and looks a little bit better today, although she has severe disease. She was seen by Surgery and by Pulmonology. She has lung cancer with diffuse aggressive metastasis. She has no pain at this time and she is very hungry. PHYSICAL EXAMINATION: VITAL SIGNS: She has a 98 temperature, 109 pulse, 105/76 blood pressure, 18 respiratory rate, 98% O2 sat on room air. HEENT: Head is atraumatic, normocephalic. She has left shoulder mass, could be cancer metastasis. HEART: Regular rate. LUNGS: Decreased breath sounds, bilaterally. ABDOMEN: Soft, nontender. Positive bowel sounds. She is diffusely metastasis. EXTREMITIES: No edema. MEDICATIONS: She is on Rocephin, DuoNeb, morphine, Pulmicort and IV fluids. LABORATORY DATA: White count 59.8, went up, hemoglobin 9.6, hematocrit 29.8, platelets are 523. INR is 1.43. D-dimer is 1,578. She has a 136 sodium, better; potassium 4; BUN is 4; creatinine is 0.4; GFR is greater than 60; sugar is 93; calcium is 9.1; total bilirubin is 0.4; AST is 27; ALT is 26; alkaline phosphatase is 87. Total protein is 5.2. PLAN: She is being seen by multiple physicians. She has consults with Oncology, Surgery and Pulmonary. We will get her out of bed to chair, feed her. We will see what we can do as far as final diagnosis for Oncology to treat and she is improving slowly. improved. Not lethargic. Not exhausted. No chest pain. No shortness of breath. Rocky Potter DO MTDD
[2017-03-22] MEDS: Albuterol-Ipratrop 3 mg / 0.5 (3 ml) UD IH SCH ×3 (11:51→19:40)
[2017-03-22] MEDS: Budesonide 0.5 mg/2 ml Inhal Susp UD IH SCH ×2 (11:51→19:40)
[2017-03-22] MEDS: Morphine 4 mg/ml ISec IVP PRN ×2 (11:56→17:28)
[2017-03-22] MEDS ORDERED: Morphine 2 mg/ml ISec ONE (11:56)
[2017-03-22] MEDS ORDERED: Bupivacaine 0.5% Inj(30mL) ONE (12:42)
[2017-03-22] MEDS ORDERED: Lidocaine 1% Inj (20ml) ONE (12:42)
--- NOTE | 2017-03-22 13:48 | PCM.SURG1 ---
Surgeon's Initial Post Op Note - Surgeon's Notes Surgeon: Dr. Julien [employer] Buyer: Dr. Giron PGY1 Type of Anesthesia: Local Pre-Operative Diagnosis: Metastatic tumor mass on left should of unknown origin Operative Findings: see op note Post-Operative Diagnosis: as above Operation Performed: Core biopsy of shoulder mass Specimen/Specimens Removed: core biopsy of shoulder mass Estimated Blood Loss: EBL {In ML}: 3 Blood Products Given: N/A Drains Used: No Drains Post-Op Condition: Good Date of Surgery/Procedure: 03/22/17 Time of Surgery/Procedure: 13:00
--- NOTE | 2017-03-22 14:45 | CON ---
ONCOLOGY CONSULTATION HISTORY OF PRESENT ILLNESS: This is a 61-year-old woman with radiologic diagnosis of lung cancer widely metastatic to her skin, to her bones, and to her lymph nodes. She tells me that cigarettes positive, alcohol negative, medications negative. She lives with her mother and her son and she has been having increasing pains in her abdomen, which required her to come to the hospital. She says she knows me. She says she saw me about 2 years ago in my office. She states that this was a lung cancer that I was treating her for. I sent her for mammograms and other things. She never followed up. PHYSICAL EXAMINATION: SKIN: She has a mass about 3 cm coming off the skin under the left shoulder. HEENT: Temporal wasting noted. NODES: Nonpalpable in the axillary, cervical, supraclavicular, or inguinal regions. LUNGS: Essentially clear. No vertebral tenderness. HEART: S1 and S2. ABDOMEN: Shows no liver, no spleen, no tenderness. EXTREMITIES: No edema. CENTRAL NERVOUS SYSTEM: No focal findings. I told her since the radiologic diagnosis of cancer that she should have the mass biopsied. and indeed I did speak to Dr. Julien told this. We have to send this not only for pathology, but also for mutations for ALK, for ROS, for BRAF, and for EGFR mutations in order to decide if she is eligible for pills as well as a PD-L1 mutation to see if she is eligible for the immunotherapy. She knows to come and see me in the office in 2 weeks. At that time, we will have the reports back on this. Tomas Mack MD
[2017-03-23] MEDS: Albuterol-Ipratrop 3 mg / 0.5 (3 ml) UD IH SCH ×4 (01:25→20:01)
[2017-03-23 06:58] LABS: HEMOGLOBIN 9.1 g/dL (12.0-16.0); MEAN CORPUSCULAR HEMOGLOBIN 30.2 pg (25.0-35.0); MEAN CORPUSCULAR HGB CONC 32.9 g/dl (31.0-37.0); MEAN PLATELET VOLUME 8.4 fl (7.0-11.0); RBC 3.01 10^6/uL (3.5-6.1); RED CELL DISTRIBUTION WIDTH 14.9 % (11.5-14.5)
[2017-03-23 07:22] LABS: ALBUMIN 2.3 g/dL (3.0-4.8); ALT/SGPT 27 U/L (7-56); AST/SGOT 27 U/L (14-36); BLOOD UREA NITROGEN 4 mg/dL (7-21); CALCIUM 8.8 mg/dL (8.4-10.5); GFR AFRICAN-AMERICAN > 60; GFR NON-AFRICAN AMERICAN > 60
[2017-03-23 07:36] LABS: ALB/GLOB RATIO 0.8 (1.1-1.8)
--- NOTE | 2017-03-23 07:59 | PN ---
DATE: 03/23/2017 PULMONARY NOTE SUBJECTIVE: The patient appears comfortable at rest. She is not short of breath. She is weak and cachectic. PHYSICAL EXAMINATION: VITAL SIGNS: Temperature is 98.5, pulse 98, respirations 18/20, blood pressure 101/56. Oxygen saturation on room air is 95%. HEENT: Normocephalic, atraumatic. NECK: No JVD. CARDIOVASCULAR: Positive S1, S2. No S3 gallop. LUNGS: Decreased breath sounds at the bases. Less rhonchi. No wheezing. EXTREMITIES: No clubbing, cyanosis or edema. Calves are nontender to palpation. GI: Abdomen is soft, nontender and nondistended. Bowel sounds are positive. SKIN: There are multiple skin lesions on the chest and back area. The left shoulder lesion has been biopsied. NEUROLOGIC: Exam limited at the present time. IMPRESSION: 1. Advanced metastatic lung cancer. 2. Chronic obstructive pulmonary disease. 3. Wasting syndrome. 4. Mild anemia. 5. Questionable underlying leukemia. PLAN: The patient appears comfortable this morning. She is not short of breath at rest. She does appear weak and cachectic looking. She does state to feeling better overall. On physical exam, there is less bronchospasm noted. In addition, the oxygen saturation is now 95% on room air. I will continue the current nebulizer treatments and inhaled steroids for now. The patient is status post biopsy of her left shoulder lesion. Input by Surgery is noted. Input by Dr. Mack (Oncology) is also noted. Overall status/outlook for this patient remains very poor. I will discuss the above with Dr. Potter later this morning. Jay Jay Zheng MD MTDD
[2017-03-23 08:01] LABS: WHITE BLOOD COUNT 55.7 10^3/ul (4.5-11.0)
--- NOTE | 2017-03-23 08:26 | CP.PCM.PN ---
Subjective - Date & Time of Evaluation Date of Evaluation: 03/23/17 Time of Evaluation: 06:45 - Subjective Subjective: General Surgery- Dr. Julien Patient seen and examined at bedside this AM. No acute events overnight. some edema in left arm. site of incision of biopsy C/D/I. tolerating current diet. Denies fevers, chills, chest pain, shortness of breath, nausea, vomiting. Objective - Vital Signs/Intake and Output Vital Signs (last 24 hours): Temp Pulse Resp BP Pulse Ox 98.5 F 98 H 20 101/56 L 95 03/23/17 07:31 03/23/17 07:31 03/23/17 07:31 03/23/17 07:31 03/23/17 07:31 Intake and Output: 03/23/17 03/23/17 06:59 18:59 Intake Total 120 Balance 120 - Medications Medications: Current Medications Albuterol/Ipratropium (Duoneb 3 Mg/0.5 Mg (3 Ml) Ud) 3 ml IH [id number] [facility] Last Admin: 03/23/17 01:25 Dose: Not Given Albuterol/Ipratropium (Duoneb 3 Mg/0.5 Mg (3 Ml) Ud) 3 ml IH Q2H PRN PRN Reason: Shortness of Breath Budesonide (Pulmicort Respules) 0.5 mg IH [id number] [facility] Last Admin: 03/22/17 19:40 Dose: Not Given Ceftriaxone Sodium 1 gm/ (Sodium Chloride) 100 mls @ 100 mls/hr IVPB DAILY SANDIP PRN Reason: Protocol Last Admin: 03/22/17 09:31 Dose: 100 mls/hr Sodium Chloride (Sodium Chloride 0.9%) 500 mls @ 40 mls/hr IV .[id number] [facility] Last Admin: 03/22/17 17:34 Dose: 40 mls/hr Morphine Sulfate (Morphine) 4 mg IVP Q4H PRN PRN Reason: Pain, moderate (4-7) Last Admin: 03/22/17 17:28 Dose: 4 mg - Labs Labs: 03/23/17 06:20 03/23/17 06:20 PT 15.7 SECONDS (9.4-12.5) H 03/21/17 16:00 INR 1.43 (0.93-1.08) H 03/21/17 16:00 APTT 30.1 Seconds (25.1-36.5) 03/21/17 16:00 - Constitutional Appears: Non-toxic, No Acute Distress - Head Exam Head Exam: ATRAUMATIC - Eye Exam Eye Exam: EOMI. absent: Scleral icterus - ENT Exam ENT Exam: Mucous Membranes Moist - Respiratory Exam Respiratory Exam: NORMAL BREATHING PATTERN. absent: Accessory Muscle Use, Respiratory Distress - Cardiovascular Exam Cardiovascular Exam: +S1, +S2. absent: Bradycardia, Tachycardia - GI/Abdominal Exam GI & Abdominal Exam: Soft. absent: Distended, Firm, Guarding, Rigid, Tenderness - Extremities Exam Extremities Exam: absent: Joint Swelling, Tenderness Additional comments: +2 radial pulses B/L dressing C/D/I over left shoulder - Neurological Exam Neurological Exam: Alert, Awake, Oriented x3 - Psychiatric Exam Psychiatric exam: Normal Affect - Skin Skin Exam: Mottled, Vesicles, Warm Assessment and Plan - Assessment and Plan (Free Text) Assessment: 61F w/ metastatic cancer of unknown origin s/p core needle biopsy of left shoulder mass POD1 Plan: - follow up pathology results - can shower - encourage and exercise and movement of the left arm - medical management per primary and oncology team - no further surgical intervention at this time - further recommendations per Dr. Julien surgical attending Amari Giron PGY1
[2017-03-23] MEDS: Budesonide 0.5 mg/2 ml Inhal Susp UD IH SCH ×2 (08:31→20:01)
[2017-03-23] MEDS: Morphine 4 mg/ml ISec IVP PRN ×2 (10:00→15:27)
--- NOTE | 2017-03-23 10:30 | PN ---
DATE: SUBJECTIVE: She is resting in bed. She slept fair. She is very weak. Not much of an appetite. Shortness of breath at times. She is on oxygen. She is on DuoNeb, morphine for pain. She is in a lot of pain. Pulmicort plus steroid inhaler, IV Rocephin and IV fluids. PHYSICAL EXAMINATION: VITAL SIGNS: 98.5 temperature, 98 pulse, 101/56 blood pressure, 20 respiratory rate, 95% O2 sat on room air. HEENT: Head is atraumatic and normocephalic. HEART: Regular rate. LUNGS: Decreased breath sounds bilaterally. ABDOMEN: Decreased bowel sounds, mildly hard, but no guarding or rebound. EXTREMITIES: Have no edema. LABORATORY DATA: She has a 55 white count, 9.1 hemoglobin, 27.7 hematocrit with 527 platelets. She has a 133 sodium, potassium 3.8, BUN 4, creatinine 0.4, GFR is greater than 60, sugar is 88, calcium is 8.8, total bilirubin is 0.3, AST is 27, ALT is 27, alkaline phosphatase is 77. Total protein is 5.1. ASSESSMENT AND PLAN: She is being seen by Oncology, Pulmonology, Surgery. She had a biopsy, trying to find if there is a treatable cancer plus leukemia, plus she has wasting syndrome, advanced metastasis, lung cancer, chronic obstructive pulmonary disease, and we will see what we can do for now. Oncology point of view meanwhile, Pulmonary is doing a pulmonary toilet on her, try and get her breathing as best they can. She is weak. We will order physical therapy, out of bed to chair. Continue aggressive treatment and care. We may have a plan from Oncology, see what they are up to and we will see how she is doing strength mcneill. Rocky Potter DO
[2017-03-23] MEDS: Sodium Chloride 0.9% 500 ML IV SCH (11:55)
--- NOTE | 2017-03-23 12:56 | CP.PCM.CON ---
History of Present Illness - History of Present Illness History of Present Illness: Palliative consult requested by Dr Jason Potter Reason: [place] of care/advance care planning 61 year old female with history of presumed lung cancer diagnosed by PET who presented with left sided rib pain, decreased appetite and weight loss. She also has mild dyspnea on exertion and non productive cough. CT showed widely disseminated metastatic disease in abdomen, retroperitoneum and pelvis. Tumor burden in left upper quadrant, spleen, left adrenal gland pancreas and soft tissue. PMHX:COPD,HTN,HLD. Social History:Current long time smoker, social alcohol no illicit drug use. Family History: Non contributory Advance Care Panning: The patient has and Advanced Directive. Review of Systems: As per HPI, 12 point review otherwise negative Past Patient History - Infectious Disease Hx of Infectious Diseases: None - Past Social History Smoking Status: Current Some Days Smoker - PULMONARY Hx Lung Cancer: Yes (2 years ago no treatment) - MUSCULOSKELETAL/RHEUMATOLOGICAL Hx Falls: No - PSYCHIATRIC Hx Substance Use: No - SURGICAL HISTORY Hx Surgeries: No Meds Allergies/Adverse Reactions: Allergies Allergy/AdvReac Type Severity Reaction Status Date / Time No Known Allergies Allergy Verified 03/21/17 15:28 - Medications Medications: Current Medications Albuterol/Ipratropium (Duoneb 3 Mg/0.5 Mg (3 Ml) Ud) 3 ml IH [id number] [facility] Last Admin: 03/23/17 08:31 Dose: Not Given Albuterol/Ipratropium (Duoneb 3 Mg/0.5 Mg (3 Ml) Ud) 3 ml IH Q2H PRN PRN Reason: Shortness of Breath Budesonide (Pulmicort Respules) 0.5 mg IH [id number] [facility] Last Admin: 03/23/17 08:31 Dose: Not Given Ceftriaxone Sodium 1 gm/ (Sodium Chloride) 100 mls @ 100 mls/hr IVPB DAILY SANDIP PRN Reason: Protocol Last Admin: 03/23/17 09:59 Dose: 100 mls/hr Sodium Chloride (Sodium Chloride 0.9%) 500 mls @ 40 mls/hr IV .[id number] [facility] Last Admin: 03/23/17 11:55 Dose: 40 mls/hr Morphine Sulfate (Morphine) 4 mg IVP Q4H PRN PRN Reason: Pain, moderate (4-7) Last Admin: 03/23/17 10:00 Dose: 4 mg Physical Exam - Constitutional Appears: Cachectic, Chronically Ill - Head Exam Head Exam: NORMAL INSPECTION - Eye Exam Eye Exam: Normal appearance, PERRL - ENT Exam ENT Exam: Mucous Membranes Moist, Normal Oropharynx - Neck Exam Neck exam: Positive for: Normal Inspection - Respiratory Exam Respiratory Exam: Decreased Breath Sounds, Rhonchi, NORMAL BREATHING PATTERN - Cardiovascular Exam Cardiovascular Exam: REGULAR RHYTHM, +S1, +S2 - GI/Abdominal Exam GI & Abdominal Exam: Normal Bowel Sounds, Soft - Extremities Exam Extremities exam: Positive for: normal inspection, pedal pulses present - Back Exam Additional comments: multiple small masses back and left shoulder area - Neurological Exam Neurological exam: Alert - Skin Skin Exam: Dry, Pallor - Additional Findings Additional findings: Palliate performance scale rating 50% Results - Vital Signs Recent Vital Signs: Last Vital Signs Temp 98.5 F 03/23/17 07:31 Pulse 98 H 03/23/17 07:31 Resp 20 03/23/17 07:31 BP 101/56 L 03/23/17 07:31 Pulse Ox 95 03/23/17 07:31 - Labs Result Diagrams: 03/23/17 06:20 03/23/17 06:20 Labs: Laboratory Results - last 24 hr 03/23/17 03/23/17 06:20 06:20 WBC 55.7 H* RBC 3.01 L Hgb 9.1 L Hct 27.7 L MCV 92.0 MCH 30.2 MCHC 32.9 RDW 14.9 H Plt Count 527 H MPV 8.4 Sodium 133 Potassium 3.8 Chloride 100 Carbon Dioxide 25 Anion Gap 12 BUN 4 L Creatinine 0.4 L Est GFR ( Amer) > 60 Est GFR (Non-Af Amer) > 60 Random Glucose 88 Calcium 8.8 Total Bilirubin 0.3 AST 27 ALT 27 Alkaline Phosphatase 77 Total Protein 5.1 L Albumin 2.3 L Globulin 2.8 Albumin/Globulin Ratio 0.8 L Assessment & Plan - Assessment and Plan (Free Text) Assessment: 61 year old female with presumed late stage lung cancer who was admitted with pain in shoulder, left rib cage, anemia and cachexia. Biopsy of shoulder mass done 03/22, result pending. CT shows extensive metastatic disease in abdomen and pelvis. Patient is alert and oriented. She is candid with sharing understanding of her medical condition and prognosis. Jannie states she is not afraid to and when its time she will accept the inevitable. She has purposely refused biopsy and treatment of her disease in the past. She prefers to live her life without the burden of "treatment and doctor visits". She has no intention of trying smoking cessation. The patient did agree to biopys during this admission. She is willing to consider treatment with immunotherapy if she is a candidate. POLST Directive explained in detail, question answered.Patient interested in completing POLST. Time spent with patient on goals of care discussion and an advance care planning , 40 minutes Plan: Palliative support in establishing goals of care Advance care planning
[2017-03-24] MEDS: Albuterol-Ipratrop 3 mg / 0.5 (3 ml) UD IH SCH ×4 (01:45→20:05)
[2017-03-24] MEDS: Sodium Chloride 0.9% 500 ML IV SCH ×2 (06:23→06:25)
[2017-03-24] MEDS: Budesonide 0.5 mg/2 ml Inhal Susp UD IH SCH ×2 (07:44→20:05)
[2017-03-24 07:58] LABS: HEMOGLOBIN 9.2 g/dL (12.0-16.0); MEAN CELL VOLUME 91.7 fl (80.0-105.0); MEAN CORPUSCULAR HEMOGLOBIN 30.4 pg (25.0-35.0); MEAN CORPUSCULAR HGB CONC 33.1 g/dl (31.0-37.0); MEAN PLATELET VOLUME 8.3 fl (7.0-11.0); RBC 3.03 10^6/uL (3.5-6.1)
[2017-03-24 08:07] LABS: ALB/GLOB RATIO 0.8 (1.1-1.8); ALBUMIN 2.3 g/dL (3.0-4.8); ALT/SGPT 38 U/L (7-56); AST/SGOT 32 U/L (14-36); BLOOD UREA NITROGEN 3 mg/dL (7-21); CALCIUM 8.5 mg/dL (8.4-10.5); GFR AFRICAN-AMERICAN > 60; GFR NON-AFRICAN AMERICAN > 60
[2017-03-24] MEDS: Morphine 4 mg/ml ISec IVP PRN ×2 (08:07→21:37)
[2017-03-24 08:22] LABS: WHITE BLOOD COUNT 55.4 10^3/ul (4.5-11.0)
[2017-03-24 08:36] LABS: BASO # 0.06 K/mm3 (0.0-2.0); BASO % 0.1 % (0.0-3.0); EOS # 9.7 (0.0-0.7); EOS % 17.8 % (1.5-5.0); GRAN # 38.29 (1.4-6.5); GRAN % 69.8 % (50.0-68.0); LYMPH # 2.7 (1.2-3.4); LYMPH % 4.9 % (22.0-35.0); MONO # 4.1 (0.1-0.6); MONO % 7.4 % (1.0-6.0)
[2017-03-24] MEDS ORDERED: Bisacodyl 5mg EC Tab PO ONE (12:49)
--- NOTE | 2017-03-24 15:13 | PN ---
DATE: 03/24/2017 PULMONARY PROGRESS NOTE SUBJECTIVE: The patient is feeling better. She is still short of breath. She does not feel she needs oxygen, but we feel it would benefit her. She is still breathing somewhat irregularly, but she feels much better than when she came into the hospital. There are no other complaints. She is talking about being discharged before [place] and she wants to make sure that she has sufficient analgesia before leaving. PHYSICAL EXAMINATION: GENERAL: She is comfortable, in no acute respiratory distress, but she does have intermittent episodes of dyspnea. VITAL SIGNS: She is afebrile with the pulse of 98, respiratory rate of 20, blood pressure of 100/60, and oxygen sat 96%. HEENT: Normocephalic. NECK: No JVD. No lymphadenopathy. No bruits. No mass. No additional abnormalities noted. CARDIOVASCULAR: Regular rhythm. S1 and S2. Soft systolic ejection murmur at the lower left sternal border. LUNGS: Decreased breath sounds throughout, rhonchi throughout. No wheezing appreciated. ABDOMEN: Soft. Bowel sounds normoactive without mass, guarding, rebound or organomegaly. EXTREMITIES: Reveal no clubbing, cyanosis or edema. There is no Homans' sign noted, whatsoever. SKIN: Shows multiple lesions in the left shoulder with biopsies recently. There is healing process going on. No rashes are noted. NEUROLOGIC: No focal findings. No additional abnormality is noted. LYMPH NODES: Lymphadenopathy is not present in the supraclavicular notch or in the cervical inguinal axillary areas. DIAGNOSTIC STUDIES: No new x-rays are completed. IMPRESSION: 1. Metastatic lung cancer (advanced). 2. Chronic obstructive pulmonary disease. 3. Cachexia. 4. Rule out underlying leukemia. PLAN: The patient is anxious to go home soon for the holidays with analgesia. She asked that we speak to the PMD to arrange such treatment plan. We will need to discuss with Dr. Potter and Oncology. She should continue home on a nebulizer treatment as she has already taken and be seen by us as an outpatient in the near future. [place] remains extremely guarded. Prognosis is very poor. She needs to do whatever she can do to give her comfort and satisfaction. Unfortunately, prognosis is guarded. Mark Hinojosa MD
--- NOTE | 2017-03-24 16:24 | PN ---
DATE: SUBJECTIVE: I saw Jannie resting comfortably in bed. She also is in a lot of pain, is very constipated. The morphine helps, but it is not that great. I am going to start her on fentanyl patch 25 mcg every 72 hours. She can still have the morphine. She is on Rocephin. She is on a breathing treatment and a stool softener. I also gave her a Dulcolax pill because she is very constipated. PHYSICAL EXAMINATION: VITAL SIGNS: Temperature 98.5, 103 pulse, 104/60 blood pressure, 20 respiratory rate. HEENT: Head is atraumatic, normocephalic. HEART: Regular rate. LUNGS: Decreased breath sounds. ABDOMEN: Decreased bowel sounds, mild discomfort, mild tender. No guarding, no rebound. EXTREMITIES: No edema. LABORATORY DATA: She has a 138 sodium, potassium 3.6, BUN 3, creatinine 0.4, GFR is greater than 60, sugar is 98, calcium is 8.5. Total bilirubin is 0.3. AST is 32, ALT is 38, alk phos is 88. White count is 55, hemoglobin is 9.2, hematocrit 27.8, platelets of 533. ASSESSMENT AND PLAN: She is being seen by Pulmonary, Palliative Care, Surgery, Oncology. My plan is to put her on fentanyl patch and to see if I get the bowels to move with the Dulcolax tablet, and discharge her tomorrow on 03/24/2017, with good pain medications to follow up on the outpatient. Hopefully, final results of the biopsy of the mass on the left shoulder and then get it to Dr. Mack, the oncologist for possible treatment and pain management. She has long cancer with metastasis everywhere, constipation, cystitis, chronic obstructive pulmonary disease. Rocky Potter DO
[2017-03-25] MEDS: Albuterol-Ipratrop 3 mg / 0.5 (3 ml) UD IH SCH ×2 (01:39→07:40)
[2017-03-25 02:14] VITALS: RESP 20
[2017-03-25] MEDS: Morphine 4 mg/ml ISec IVP PRN ×2 (06:14→10:57)
[2017-03-25] MEDS ORDERED: Sodium Chloride 0.9% 1,000 ML IV SCH (06:35)
[2017-03-25 07:35] VITALS: BP 114/65; TEMP 97.7; O2SAT 94
[2017-03-25] MEDS: Budesonide 0.5 mg/2 ml Inhal Susp UD IH SCH (07:40)
[2017-03-25 07:58] LABS: HEMOGLOBIN 8.9 g/dL (12.0-16.0); MEAN CELL VOLUME 93.2 fl (80.0-105.0); MEAN CORPUSCULAR HEMOGLOBIN 30.4 pg (25.0-35.0); MEAN CORPUSCULAR HGB CONC 32.6 g/dl (31.0-37.0); MEAN PLATELET VOLUME 8.4 fl (7.0-11.0); RBC 2.93 10^6/uL (3.5-6.1); RED CELL DISTRIBUTION WIDTH 15.1 % (11.5-14.5)
[2017-03-25 08:07] LABS: WHITE BLOOD COUNT 53.6 10^3/ul (4.5-11.0)
[2017-03-25 08:21] LABS: ALB/GLOB RATIO 0.8 (1.1-1.8); ALBUMIN 2.2 g/dL (3.0-4.8); ALT/SGPT 32 U/L (7-56); AST/SGOT 30 U/L (14-36); BLOOD UREA NITROGEN 4 mg/dL (7-21); CALCIUM 8.5 mg/dL (8.4-10.5); GFR AFRICAN-AMERICAN > 60; GFR NON-AFRICAN AMERICAN > 60
[2017-03-25 12:13] VITALS: PULSE 92
--- NOTE | 2017-03-26 05:01 | DS ---
HISTORY OF PRESENT ILLNESS: I saw her this morning, not much changed from yesterday. She is still having pain. I will increase her Duragesic patch to 50 mcg from 25. There is not much going on right now. She was on Colace, DuoNebs, Duragesic, morphine, Pulmicort, Rocephin and IV fluids. She has lung cancer with metastasis all throughout her body. Waiting for biopsy results to come back. She could wait at home. She is eating some. PHYSICAL EXAMINATION: VITAL SIGNS: Temperature 97.7, pulse 95, blood pressure 114/65, respiratory rate 20, O2 saturation 94% on nasal cannula. GENERAL: She is alert, understands the situation. HEENT: Head is atraumatic, normocephalic. HEART: Regular rate. LUNGS: Decreased breath sounds bilaterally. ABDOMEN: Mildly hard, but soft. It is weird. There is cancer throughout her abdomen. She has decreased bowel sounds which are present. EXTREMITIES: Have no edema. LABORATORY DATA: She has 53,000 white count from the leukemia, 8.9 hemoglobin, 27.3 hematocrit with a 518 platelets. Sodium 137, potassium 3.7, BUN 4, creatinine 0.4, GFR is greater than 60, sugar is 93. Calcium is 8.5, total bilirubin is 0.2, AST 30, ALT 32, alkaline phosphatase 78, total protein 4.9. ASSESSMENT AND PLAN: She was being seen by the oncologist, Pulmonary, palliative care nurse, surgery. She was here for lung cancer with massive metastasis, chronic pain, cystitis, chronic obstructive pulmonary disease, wasting syndrome, and leukemia. We will put her on Advair, Colace and increase the Fentanyl patch to 50 mcg. We are still waiting for the biopsy results to come back of the mass in the left shoulder. Erich Potter DO
--- NOTE | 2017-04-04 07:05 | OP ---
PROCEDURE DATE: 03/22/2017 PREOPERATIVE DIAGNOSIS: Mass on the shoulder. POSTOPERATIVE DIAGNOSIS: Mass on the shoulder. OPERATION PERFORMED: Arsenio-Cut needle biopsy. PROCEDURE: In the operating room, the patient was identified by name, name of procedure, laterality, my heather. The wounds were injected with Marcaine. The palpable mass almost certainly metastatic, was infiltrated. Multiple passes with Arsenio-Cut needle were done, this was sent fresh to lab at the request of Dr. Rankin. Hemostasis was good. It was closed with Vicryl. Light dressings applied. The patient taken to the recovery room in good condition after sponge and needle counts were declared correct. Boy Julien MD
== END 2017-03-25 15:07 | disposition home or self-care (01) | DRG 181 ==
LOC: ED 15:15 → ERH 20:09 → 3RNO 21:22
PROVIDERS: ADMIT Family Medicine; ATTEND Family Medicine
PROC: 0JBF3ZX Excision of Left Upper Arm Subcutaneous Tissue and Fascia, Percutaneous Approach, Diagnostic (ICD-10-PCS; principal; 2017-03-22 15:15)
DX: C34.90 Malignant neoplasm of unspecified part of unspecified bronchus or lung (principal); C79.89 Secondary malignant neoplasm of other specified sites; R64 Cachexia; C79.51 Secondary malignant neoplasm of bone; C95.90 Leukemia, unspecified not having achieved remission; Z68.1 Body mass index [BMI] 19.9 or less, adult; N30.90 Cystitis, unspecified without hematuria; J44.9 Chronic obstructive pulmonary disease, unspecified; E78.5 Hyperlipidemia, unspecified; E78.00 Pure hypercholesterolemia, unspecified; G89.29 Other chronic pain; D64.9 Anemia, unspecified; I10 Essential (primary) hypertension; K59.00 Constipation, unspecified; R53.1 Weakness; F17.210 Nicotine dependence, cigarettes, uncomplicated; Z91.19 Patient's noncompliance with other medical treatment and regimen